=== PATIENT | male | born 1955 | race Caucasian/White ===

== ENCOUNTER 2017-08-21 15:05 | Outpatient (RCR) | payer OTHER | END 2017-08-24 | LOC: PT 15:05 | PROVIDERS: ATTEND Specialist | DX: M75.42 Impingement syndrome of left shoulder (principal); M25.512 Pain in left shoulder; M62.81 Muscle weakness (generalized) ==

== ENCOUNTER 2017-08-29 08:58 | Outpatient (RCR) | payer OTHER ==
--- NOTE | 2017-08-25 02:04 | Discharge Summary ---
DENICE DURAN, LENGTH 0:1 YESENIA KHAN MD Job#: [id number] [place]
== END 2017-09-24 ==
LOC: PT 08:58
PROVIDERS: ATTEND Specialist
DX: M75.42 Impingement syndrome of left shoulder (principal); M25.512 Pain in left shoulder; M62.81 Muscle weakness (generalized)